=== PATIENT | male | born 1935 | race Asian ===

== ENCOUNTER 2017-09-12 20:54 | Emergency (ER) | payer MEDICARE, OTHER ==
[~2017-09-12] VITALS: Ht 170.2 cm; Wt 54.4 kg
[2017-09-12 20:54] VITALS: BP 150/27
[2017-09-12 21:00] VITALS: BP 0/0
--- NOTE | 2017-09-12 21:18 | Emergency Room Report ---
History of Present Illness General Chief Complaint: CPR Source: Family Member, EMS Present Illness HPI Patient presents with CPR in progress Report was given by paramedics upon arrival the patient had found to be in V. fib and V. tach Had been given epinephrine and amiodarone Patient had ET tube in place and again CPR in progress There was an IO In the left tibial area by paramedics Upon initial evaluation patient had V. fib And cardioversion was performed On further discussion with family The report that the patient has a home health body shop technician one of the sisters had seen the patient about an hour prior to this event The body shop technician told the family that the patient had taken off his oxygen stated something to the fact that he saw Chad armijo and then became unresponsive Family is also reporting that he does not wish to be intubated or have prolonged ventilator Allergies: Coded Allergies: No Known Allergies (Unverified , 09/12/17) Patient History Past Medical History: see triage record Pertinent Family History: none Reviewed Nursing Documentation: PMH: Agreed; PSxH: Agreed Nursing Documentation-PMH Past Medical History Deferred: Pt Cognitively Impaired Past Medical History: No History, Except For Hx Cardiac Problems: Yes Review of Systems All Other Systems: limited - Other than the ones mentioned in the history of present illness all others are reviewed however they do stay limited due to the patient's mental status Physical Exam Vital Signs Date Time Temp Pulse Resp B/P (MAP) Pulse Ox O2 Delivery O2 Flow Rate FiO2 09/12/17 20:49 0 0 150/27 Endotracheal Tube Sp02 EP Interpretation: reviewed, abnormal - Pulse ox remained low at 55%, this is a low percentage however we did not have a appropriate waveform and the patient remained in CPR General Appearance: thin - Patient appears thin and frail in critical condition Head: normocephalic, atraumatic Eyes: bilateral eye other - Pupils fixed at 4 mm B no reaction ENT: other - A dentureless Neck: other - No obvious step-offs Respiratory: crackles - Audible crackles with Ambu bag respirations otherwise patient initially had very minimal agonal type respirations which terminated fairly quickly Cardiovascular #1: no edema, other - Large midsternal surgical scar Gastrointestinal: soft, no hernia Musculoskeletal: other - Patient unresponsive and not moving extremities Neurologic: other - GCS T3, unresponsive Skin: other - Appears pale Lymphatic: no adenopathy Procedures Critical Care Time Critical Care Time 15 minutes for multiple re-evaluations, critical presentation not including any procedural time CPR/Code Blue CPR/Code Blue Narrative Please refer to code sheet for full specifics Upon arrival and speaking to family the provide information to the patient's full DO NOT RESUSCITATE status at this time Patient's ET tube had been drawn back from 29 cm that was in place from paramedics to 24 cm Patient had initial ventricle fibrillation and cardioverted Accu-Chek obtained CPR progressed Patient remained in asystole after the cardioversion And there was no palpable pulses Bedside ultrasound reveals no cardiac activity No palpable pulses In further discussion given the patient's wishes and the futile appearance at this time patient was pronounced at 2100 Medical Decision Making Diagnostic Impression: Primary Impression: Cardiopulmonary arrest ER Course Please refer to the code CPR note for further specifics Bedside ultrasound did not reveal any cardiac activity CPR was terminated The exact etiology of this presentation is not clear However patient's Accu-Chek was appropriate Patient has had multiple comorbidities At this time family provides wishes for no further CPR as well And patient pronounced at 2100 Rhythm Strip Diag. Results EP Interpretation: yes Rate: asystole Rhythm: no PVC's, no ectopy, other Last Vital Signs Date Time Temp Pulse Resp B/P (MAP) Pulse Ox O2 Delivery O2 Flow Rate FiO2 09/12/17 20:49 0 0 150/27 Endotracheal Tube Status: unchanged Disposition: Condition: Shannon Benitez DO Sep 12, 2017 21:17
== END 2017-09-12 21:20 | disposition expired ==
LOC: EDBD 20:54 → EMR 21:05
DX: I46.9 Cardiac arrest, cause unspecified (principal)
CPT/HCPCS: 92950; 99284